=== PATIENT | male | born 1990 ===

== ENCOUNTER → 2022-01-29 | Outpatient (CLI) | payer SELFPAY ==
[2022-01-29 16:36] LABS: Free T4 (Free Thyroxine) 1.2 ng/dL (0.89-1.76)
[2022-01-29 16:37] LABS: Potassium 3.9 mmol/L (3.5-5.1)
[2022-01-29 16:38] LABS: Hemoglobin 14.8 g/dL (13.5-17.5); White Blood Cell 7.1 10^3/uL (4.4-10.8)
[2022-01-29 16:44] LABS: Mean Corpuscular Hemoglobin 22.3 pg (28.0-32.0); Mean Corpuscular Hgb Conc. 30.8 g/dL (32.0-36.0); Mean Corpuscular Volume 72.4 fL (80.0-100.0); Red Blood Cells 6.63 10^6/uL (4.5-5.90); Red Cell Distribution Width 15.1 % (11.8-14.3)
[2022-01-29 16:49] LABS: Albumin 3.8 g/dL (3.4-5.0); BUN/Creatinine Ratio 8.3; Bilirubin, Total 0.4 mg/dL (0.2-1.0); CRP High Sensitivity 0.04 mg/dL (< 0.3); Calcium 8.9 mg/dL (8.5-10.1); Magnesium 2.3 mg/dL (1.6-2.6)
[2022-01-29 17:17] LABS: Band Neutrophils % (manual) 0; Basophils % (manual) 0 (0.0-2.0); Blast Cells 0; Metamyelocytes % 0; Myelocytes % 0; Promyelocytes % 0
[2022-01-29 18:33] LABS: Eosinophils % (manual) 5 (0-7); Lymphocytes % (manual) 57 (10.0-50.0); Monocytes % (manual) 7 (0-12); Reactive Lymphocytes 5
== END | disposition home or self-care (01) ==
LOC: LAB 14:18
PROVIDERS: ATTEND Internal Medicine Cardiovascular Disease
DX: C61 Malignant neoplasm of prostate (principal); D51.3 Other dietary vitamin B12 deficiency anemia; D64.9 Anemia, unspecified; E11.9 Type 2 diabetes mellitus without complications; E55.9 Vitamin D deficiency, unspecified; I10 Essential (primary) hypertension; R00.2 Palpitations; R30.0 Dysuria
CPT/HCPCS: 36415; 80053; 82306; 82607; 83036; 83735; 84439; 84443; 85007; 85027; 85652; 86141

== ENCOUNTER → 2023-02-21 | Outpatient (CLI) | payer SELFPAY | END | disposition home or self-care (01) | LOC: Rad HDHVI 09:34 | PROVIDERS: ATTEND Internal Medicine Cardiovascular Disease | DX: I50.1 Left ventricular failure, unspecified (principal) | CPT/HCPCS: 93306 ==